=== PATIENT | female | born 1990 | race Two or more races ===

== ENCOUNTER 2017-08-30 10:05 | Day surgery (SDC) | payer BC ==
[2017-08-28 12:08] VITALS: BMI 26.1
[2017-08-30] MEDS ORDERED: LACTATED RINGERS SOLUTION 1,000 ML IV SCH (11:15)
[2017-08-30] MEDS ORDERED: ONDANSETRON 4 MG/2 ML VIAL IVPUSH PRN (11:15)
[2017-08-30] MEDS ORDERED: oxyCODONE HCL 5 MG TABLET PO PRN (11:15)
[2017-08-30] MEDS ORDERED: LIDOCAINE HCL 2% (20ML MULTI-DOSE VIAL) NR ONE (11:28)
[2017-08-30] MEDS ORDERED: DEXAMETHASONE SOD PHOSPHATE 4 MG/1 ML VIAL ONE (11:59)
[2017-08-30] MEDS ORDERED: MIDAZOLAM HCL 2 MG/2 ML SINGLE DOSE VIAL ONE (11:59)
[2017-08-30] MEDS ORDERED: BUPIVACAINE HCL/PF 0.25% (2.5MG/ML) 10 ML VIAL IJ ONE (12:55)
[2017-08-30 14:11] VITALS: PULSE 69; TEMP 97.8
[2017-08-30 14:21] VITALS: BP 110/65
[2017-08-30] MEDS ORDERED: oxyCODONE HCL 5 MG TABLET ONE (14:22)
--- NOTE | 2017-08-31 17:52 | OP ---
DATE OF OPERATION: 08/30/2017 PREOPERATIVE DIAGNOSIS: Left carpal tunnel syndrome. POSTOPERATIVE DIAGNOSIS: Left carpal tunnel syndrome. OPERATIVE PROCEDURE: Left endoscopic carpal tunnel release. SURGEON: Cr De Los Santos MD ANESTHESIA: General. COMPLICATIONS: None. ESTIMATED BLOOD LOSS: Minimal. INDICATIONS FOR PROCEDURE: The patient is a 27-year-old female with the above findings, indicated for operative treatment. Risks, benefits, alternatives were discussed with patient at length. Proper informed consent was obtained. PROCEDURE: After proper identification of patient and correct operative site, patient brought to operating room, placed supine on the table, prominences well padded. General anesthesia provided by the anesthesiologist. Left upper extremity was prepped and draped in usual sterile fashion. A well-padded tourniquet was placed over the sterile prep. Esmarch bandage to exsanguinate left upper extremity. Tourniquet was inflated to 250 mmHg. A transverse incision was made over the proximal wrist crease. Incision was taken sharply through the skin with blunt and sharp dissection through subcutaneous tissues. Full-thickness flap of the antebrachial fascia was developed and the carpal canal was entered with an elevator, freeing any soft tissue off the undersurface of the transverse carpal ligament. Hamate finder dilators were used to prepare the canal and the MicroAire endoscopic carpal tunnel release system was used and inserted through the distal edge of the transcarpal ligament, which was positively identified. At all times throughout the procedure, excellent visualization was achieved and at no time was any soft tissue allowed to interpose between the transverse carpal ligament and the blade. The blade was then deployed and the transverse carpal ligament was released in its entirety. Using a mini open approach, the distal 4 cm of antebrachial fascia were divided longitudinally, providing complete release of the median nerve at the wrist. The wound was irrigated with saline and repaired with a 4-0 Monocryl suture. Steri-Strips, sterile dressings were applied. The patient was reversed from anesthesia and brought to recovery room in stable condition. She tolerated procedure well. CR DE LOS SANTOS M.D. [id number]
== END 2017-08-30 15:15 | disposition home or self-care (01) ==
LOC: FASU 10:05
PROVIDERS: ATTEND Orthopaedic Surgery Hand Surgery
PROC: 01N54ZZ Release Median Nerve, Percutaneous Endoscopic Approach (ICD-10-PCS; principal; 2017-08-30 12:00)
DX: G56.02 Carpal tunnel syndrome, left upper limb (principal)
CPT/HCPCS: 84703; 94760